=== PATIENT | male | born 1960 | race Two or more races ===

== ENCOUNTER 2023-04-14 04:35 | Emergency (ER) | payer OTHER ==
[~2023-04-14] VITALS: Ht 160 cm; Wt 90.7 kg
[2023-04-14] MEDS ORDERED: GLIPIZIDE XL10 MG (04:41)
[2023-04-14] MEDS ORDERED: METFORMIN HCL1000 M2 (04:41)
[2023-04-14] MEDS ORDERED: AMLODIPINE-OLM1 EAC2 (04:42)
[2023-04-14] MEDS ORDERED: ATORVASTATIN CA10 MG (04:43)
== END 2023-04-14 09:43 | disposition home or self-care (01) ==
LOC: ER 04:37
DX: U07.1 COVID-19 (principal); E11.9 Type 2 diabetes mellitus without complications; Z79.84 Long term (current) use of oral hypoglycemic drugs; I10 Essential (primary) hypertension; Z20.822 Contact with and (suspected) exposure to COVID-19
CPT/HCPCS: 96372; 99283; J1885